=== PATIENT | female | born 1930 | race Caucasian/White ===

== ENCOUNTER 2016-09-23 10:26 | Emergency (ER) | payer MEDICARE, OTHER ==
[~2016-09-23 10:26] MED LIST: ALTACE10 M1 PO; ALTACE10 MG PO; ARTHROTEC 751 TAB.EC; ARTHROTEC PO; ASACOL HD800 MG PO; ASPIR 8181 MG PO; CALCIUM 600 +1 EAC1 PO; CEROVITE ADVANC1 TAB PO; COATED ASPIRIN325 M1 PO; COLACE50 MG PO; CRESTOR; CRESTOR10 MG; CYCLOBENZAPRINE5 M1 PO; DARVOCET-N 1001 TAB; DYAZIDE 37.5/251 CAP; ENTOCORT EC3 MG PO; HYDROCHLOROTHIAZIDE; LANSOPRAZOLE30 MG PO; LIPITOR10 MG PO; LOPRESSOR50 MG PO; MAXZIDE-25 MG1 UDTAB PO; METAMUCIL0.52 G PO; METAMUCIL1042 GM; METOPROLOL SUCC50 MG PO; MIRTAZAPINE15 MG; MIRTAZAPINE15 MG PO; MIRTAZAPINE7.5 MG PO; MULTIVITAMIN1 TAB PO; NEXIUM20 MG; NEXIUM40 MG PO; NOLVADEX20 MG PO; NORCO 5-325 TA1 EACH PO; PREMARIN; PREMARIN0.625 MG; PROTONIX40 MG PO; SIMVASTATIN20 MG PO; TOPROL XL25 MG PO; TORSEMIDE10 MG PO; TORSEMIDE20 MG PO; TYLENOL ARTHRI650 MG PO; ULTRAM50 MG PO; VICODIN 5/500 T1 TAB PO; VITAMIN D400 UNIT/1 PO; ZANTAC150 MG PO; [UNRECOGNIZED DRUG - OTHER]; [UNRECOGNIZED DRUG - OTHER] PO
== END 2016-09-23 13:11 ==
LOC: EDMED 10:26
DX: S70.02XA Contusion of left hip, initial encounter (principal); M75.102 Unspecified rotator cuff tear or rupture of left shoulder, not specified as traumatic; I10 Essential (primary) hypertension; K21.9 Gastro-esophageal reflux disease without esophagitis; Z85.3 Personal history of malignant neoplasm of breast; Z88.8 Allergy status to other drugs, medicaments and biological substances; Z79.82 Long term (current) use of aspirin; Z79.899 Other long term (current) drug therapy; W19.XXXA Unspecified fall, initial encounter; Y92.019 Unspecified place in single-family (private) house as the place of occurrence of the external cause